=== PATIENT | female | born 1980 | race Caucasian/White ===

== ENCOUNTER → 2018-06-26 | Day surgery (SDC) | payer OTHER ==
--- NOTE | 2018-06-26 15:47 | RADIOLOGY REPORT (SQ) ---
EXAM DESCRIPTION: ARTHRO SHOULDER INJECTION; FLUORO/NEEDLE PLACEMENT COMPLETED DATE/TIME: 06/26/2018 3:34 pm REASON FOR STUDY: INCOMPLETE ROTATOR CUFF TEAR OR RUPTURE OF LEFT SHOULDER, NOT SPECIFIED M75.112 INCOMPLETE ROTATR-CUFF TEAR/RUPTR OF L SHOULDER, NOT COMPARISON: None. FLUOROSCOPY TIME: 10 seconds 1 digital radiographic images saved to PACS. LIMITATIONS: None. PROCEDURE: Procedure, risks, benefits and alternatives explained to patient who then gave written co nsent. The posterior left shoulder was marked and a time out was called for correct procedure verific ation. Posterior entry site marked using fluoroscopic guidance. Shoulder prepped and draped using s terile technique. Local anesthesia achieved using 1% lidocaine injection. Hypodermic needle introdu raudel into the joint space under direct fluoroscopic visualization. Non-ionic contrast instilled to con firm intra-articular position. Dilute gadolinium solution then injected. Needle removed and entry si te covered with sterile bandage. No immediate complications noted. TECHNIQUE: Digital images acquired during fluoroscopy and stored on PACS. Patient immediately take n to the MR suite for additional imaging. INJECTION LOCATION: Posterior left glenohumeral joint CONTRAST TYPE AND AMOUNT: 1 mL of Omnipaque 300 was injected to confirm intra-articular needle placem ent followed by 8 mL of dilute Dotarem/Saline mixture. IMPRESSION: SUCCESSFUL NEEDLE PLACEMENT AND INJECTION FOR LEFT SHOULDER MR ARTHROGRAM USING POSTERIO R APPROACH. COMMENT: Quality ID 145: Final reports for procedures using fluoroscopy that document radiation exp osure indices, or exposure time and number of fluorographic images (if radiation exposure indices are not available) TECHNICAL DOCUMENTATION: JOB ID: [id number] [employer]- All Rights Reserved Reading location - IP/workstation name: [facility]
--- NOTE | 2018-06-26 15:47 | RADIOLOGY REPORT (SQ) ---
EXAM DESCRIPTION: ARTHRO SHOULDER INJECTION; FLUORO/NEEDLE PLACEMENT COMPLETED DATE/TIME: 06/26/2018 3:34 pm REASON FOR STUDY: INCOMPLETE ROTATOR CUFF TEAR OR RUPTURE OF LEFT SHOULDER, NOT SPECIFIED M75.112 INCOMPLETE ROTATR-CUFF TEAR/RUPTR OF L SHOULDER, NOT COMPARISON: None. FLUOROSCOPY TIME: 10 seconds 1 digital radiographic images saved to PACS. LIMITATIONS: None. PROCEDURE: Procedure, risks, benefits and alternatives explained to patient who then gave written co nsent. The posterior left shoulder was marked and a time out was called for correct procedure verific ation. Posterior entry site marked using fluoroscopic guidance. Shoulder prepped and draped using s terile technique. Local anesthesia achieved using 1% lidocaine injection. Hypodermic needle introdu raudel into the joint space under direct fluoroscopic visualization. Non-ionic contrast instilled to con firm intra-articular position. Dilute gadolinium solution then injected. Needle removed and entry si te covered with sterile bandage. No immediate complications noted. TECHNIQUE: Digital images acquired during fluoroscopy and stored on PACS. Patient immediately take n to the MR suite for additional imaging. INJECTION LOCATION: Posterior left glenohumeral joint CONTRAST TYPE AND AMOUNT: 1 mL of Omnipaque 300 was injected to confirm intra-articular needle placem ent followed by 8 mL of dilute Dotarem/Saline mixture. IMPRESSION: SUCCESSFUL NEEDLE PLACEMENT AND INJECTION FOR LEFT SHOULDER MR ARTHROGRAM USING POSTERIO R APPROACH. COMMENT: Quality ID 145: Final reports for procedures using fluoroscopy that document radiation exp osure indices, or exposure time and number of fluorographic images (if radiation exposure indices are not available) TECHNICAL DOCUMENTATION: JOB ID: [id number] [employer]- All Rights Reserved Reading location - IP/workstation name: [facility]
--- NOTE | 2018-06-26 17:39 | RADIOLOGY REPORT (SQ) ---
EXAM DESCRIPTION: MRI LT UPPER JOINT WITH COMPLETED DATE/TIME: 06/26/2018 4:29 pm REASON FOR STUDY: INCOMPLETE ROTATOR CUFF TEAR OR RUPTURE OF LEFT SHOULDER, NOT SPECIFIED M75.112 INCOMPLETE ROTATR-CUFF TEAR/RUPTR OF L SHOULDER, NOT COMPARISON: None. TECHNIQUE: Left shoulder images acquired and stored on PACS. Oblique coronal, oblique sagittal, and axial imaging to include fat sensitive sequences as T1, water sensitive sequences as FST2/STIR, and c ontrast sensitive sequences as FST1. LIMITATIONS: None. FINDINGS: JOINT DISTENTION: Adequate joint distention for interpretation. There was extravasation o f contrast from the shoulder joint along the subscapularis muscle, with a small axillary recess worri some for adhesive capsulitis. BONE MARROW AND CORTEX: Normal. No significant osteophytes. No edema or defects. AC JOINT: Type II acromion. Mild acromioclavicular joint bony spurring. Mild narrowing of the subacr omial space GLENOHUMERAL JOINT: No subluxation or dislocation. No focal chondral defects or reactive bone changes . ROTATOR CUFF: No leakage of intra-articular contrast into the subacromial/ subdeltoid bursa. There i s minimal undersurface tendinopathy of the supraspinatus tendon on coronal image 8. Infraspinatus, s ubscapularis intact. LABRUM AND BICEPS LABRAL COMPLEX: Intra-articular long head biceps tendon is normal in size and signa l. However there is a small superior labral tear extending anteriorly and posteriorly best shown on axial images 7-9, and sagittal images 11 and 12. No paralabral. INFERIOR LABRAL COMPLEX: Bony glenoid and labrum intact. Thickened inferior glenohumeral ligament wo rrisome for adhesive capsulitis ADJACENT SOFT TISSUES: No masses or nodes. OTHER: No other significant finding. IMPRESSION: Superior labral tear extending anteriorly and posteriorly. Minimal undersurface tendinopathy distal supraspinatus tendon Mild acromioclavicular joint hypertrophy Small axillary recess, leakage of contrast from the joint suggesting adhesive capsulitis TECHNICAL DOCUMENTATION: JOB ID: [id number] [employer]- All Rights Reserved Reading location - IP/workstation name: [facility]
== END ==
LOC: RAD 14:32
PROVIDERS: ATTEND Orthopaedic Surgery
DX: M75.112 Incomplete rotator cuff tear or rupture of left shoulder, not specified as traumatic (principal); S43.432A Superior glenoid labrum lesion of left shoulder, initial encounter; X58.XXXA Exposure to other specified factors, initial encounter; M75.92 Shoulder lesion, unspecified, left shoulder; M25.812 Other specified joint disorders, left shoulder
CPT/HCPCS: 23350; 77002

== ENCOUNTER → 2018-07-09 | Outpatient (CLI) | payer OTHER ==
[2018-07-09 14:26] LABS: INTERNATIONAL RATION (INR) 0.98; PROTHROMBIN TIME 13.5 SEC (11.4-15.4)
[2018-07-09 14:44] LABS: ALANINE AMINOTRANSFERASE 7 U/L (9-52); ALKALINE PHOSPHATASE 33 U/L (38-126); ASPARTATE AMINO TRANSFERASE 13 U/L (14-36); BILIRUBIN,DIRECT 0.1 mg/dL (0.0-0.4); BILIRUBIN,TOTAL 0.5 mg/dL (0.2-1.3); TOTAL PROTEIN 7.6 g/dL (6.3-8.2)
== END ==
LOC: OD 13:44
PROVIDERS: ATTEND Orthopaedic Surgery
DX: Z01.812 Encounter for preprocedural laboratory examination (principal); Z01.818 Encounter for other preprocedural examination
CPT/HCPCS: 36415; 80076; 85610